=== PATIENT | female | born 1985 | race Caucasian/White ===

== ENCOUNTER 2022-07-06 20:31 | Observation (INO) | payer BC ==
[2022-07-06 21:23] LABS: HEMATOCRIT 41.2 % (32.4-45.2); HEMOGLOBIN 14.5 G/dL (10.7-15.3); MCH 30.6 pg (25.7-33.7); MCHC 35.1 g/dl (32.0-36.0); MEAN CELL VOLUME 87.3 fl (80-96); MEAN PLT VOLUME 6.9 fl (7.5-11.1); PLATELET COUNT 283.6 10^3/uL (134-434); RBC 4.72 10^6/uL (3.60-5.2); RDW 14.4 % (11.6-15.6); WHITE BLOOD COUNT 7.7 10^3/uL (4.0-10.8)
[2022-07-06 21:39] LABS: BILIRUBIN,TOTAL 0.3 mg/dl (0.2-1); CALCIUM 9.8 mg/dl (8.5-10); CREATININE 0.6 mg/dl (0.55-1.3); HCG,QUALITATIVE URINE Negative; TOT PROT 7.4 g/dl (6.4-8.2)
[2022-07-06] MEDS ORDERED: dilTIAZem HCL 50 MG/10 ML - 10 ML VIAL IVPUSH ONE (22:31)
[2022-07-06] MEDS ORDERED: dilTIAZem HCL 125 MG/25 ML - 25 ML VIAL ONE (22:35)
[2022-07-06 23:49] LABS: PLATELET ESTIMATE ADEQUATE
[2022-07-07 01:08] VITALS: BMI 29.1
[2022-07-07 06:58] VITALS: RESP 18
[2022-07-07 08:23] LABS: CREATININE 0.5 mg/dl (0.55-1.3); MAGNESIUM 2.1 mg/dL (1.8-2.4)
[2022-07-07 08:44] LABS: CALCIUM 8.9 mg/dl (8.5-10)
[2022-07-07 09:56] LABS: BASO % 0.3 % (0-2.0); EOS % 1.4 % (0-4.5); HEMATOCRIT 38.3 % (32.4-45.2); HEMOGLOBIN 12.9 GM/dL (10.7-15.3); LYMPH % 40.4 % (8-40); MCH 29.1 pg (25.7-33.7); MCHC 33.6 g/dl (32.0-36.0); MEAN CELL VOLUME 86.7 fl (80-96); MEAN PLT VOLUME 6.9 fl (7.5-11.1); MONO % 9.8 % (3.8-10.2); NEUT % 48.1 % (42.8-82.8); PLATELET COUNT 277 10^3/uL (134-434); RBC 4.41 M/mm3 (3.60-5.2); RDW 13.8 % (11.6-15.6); WHITE BLOOD COUNT 4.7 K/mm3 (4.0-10.0)
[2022-07-07 11:41] LABS: CHOLESTEROL 187 mg/dl (50-200); HDL CHOLESTEROL 53 mg/dl (40-60); LDL CHOLESTEROL (ONLY DFH) 126 mg/dl (5-100); TRIGLYCERIDES 42 mg/dl (0-150)
[2022-07-07] MEDS ORDERED: ASPIRIN COATED 81 MG TABLET.EC PO SCH (12:30)
[2022-07-07 14:37] VITALS: BP 130/79; PULSE 79; TEMP 98.7
== END 2022-07-07 17:45 | disposition home or self-care (01) ==
LOC: FER 20:31 → FM/S 23:56
PROVIDERS: ADMIT Internal Medicine
PROC: 3E033GC Introduction of Other Therapeutic Substance into Peripheral Vein, Percutaneous Approach (ICD-10-PCS; principal; 2022-07-06)
DX: I48.91 Unspecified atrial fibrillation (principal)
CPT/HCPCS: 36415; 71045-TC-FY; 80048; 80053; 80061; 81003; 81025; 83036; 83735; 84443; 84484; 84703; 85025; 93005; 93306-TC; 99291; C9803-CS; G0378; U0003; U0005